=== PATIENT | male | born 1965 | race African-American/Black ===

== ENCOUNTER 2020-08-06 20:40 | Emergency (ER) | payer OTHER ==
[2020-08-07] MEDS ORDERED: NORCO 5-325 TA1 EACH PO ×2 (02:01→02:04)
[2020-08-07] MEDS ORDERED: KEFLEX500 MG PO (02:01)
== END 2020-08-07 02:31 | disposition home or self-care (01) ==
LOC: FER 20:40
DX: S68.626A Partial traumatic transphalangeal amputation of right little finger, initial encounter (principal); I10 Essential (primary) hypertension; Z23 Encounter for immunization; W31.9XXA Contact with unspecified machinery, initial encounter; Y92.89 Other specified places as the place of occurrence of the external cause; Y99.0 Civilian activity done for income or pay
CPT/HCPCS: 73130; 90471; 90715